=== PATIENT | male | born 1980 | race Caucasian/White ===

== ENCOUNTER → 2017-07-13 | Outpatient (CLI) | payer BC | END | disposition home or self-care (01) | LOC: KCIC MRI 14:35 | DX: S43.491A Other sprain of right shoulder joint, initial encounter (principal); R60.0 Localized edema; X58.XXXA Exposure to other specified factors, initial encounter; Y93.89 Activity, other specified; Y92.89 Other specified places as the place of occurrence of the external cause; Y99.8 Other external cause status; M19.011 Primary osteoarthritis, right shoulder | CPT/HCPCS: 73221 ==

== ENCOUNTER → 2017-08-06 | Outpatient (CLI) | payer BC ==
[2017-08-06] MEDS: methylPREDNISolone ACETATE 40 MG/ML VIAL. IM (15:45)
[2017-08-06] MEDS: LIDOCAINE 1% Multi-Dose 20 ML VIAL. INJ (15:45)
== END | disposition home or self-care (01) ==
LOC: KCIC 15:06
DX: M75.21 Bicipital tendinitis, right shoulder (principal); M25.511 Pain in right shoulder
CPT/HCPCS: 20611; 76942; J1030